=== PATIENT | female | born 1990 | race Caucasian/White ===

== ENCOUNTER 2022-04-02 23:26 | Emergency (ER) | payer SELFPAY ==
[~2022-04-02] VITALS: Ht 167.6 cm; Wt 95.3 kg
--- NOTE | 2022-04-02 23:47 | NUR ---
BIBS. L SIDE CP INTERMITENT SHARP W/ L ARM ABD BILAT LOWER LEG TINGLING. PT STATES C/P HAS BEEN FOR THE PAST FEW DAYS BUT WORSTENED TODAY. ALSO ENDORSES RECENT TRAVEL VIA AIRPLANE AND LOWER EXTREMITY PAIN. PT AWAKE AND ALERT X4 BREATHING EVEN AND UNLABORED. 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
--- NOTE | 2022-04-02 23:54 | NUR ---
20G LAC ESTABLISHED. BLOOD DRAWN AND SENT TO LAB.
[2022-04-03 00:29] LABS: BASOPHILS % (AUTO) 0.3 % (0.0-2.0); EOSINOPHILS % (AUTO) 1.4 % (0.0-6.0); HEMATOCRIT 40 % (33-45); HEMOGLOBIN 12.7 g/dL (11.5-14.8); LYMPHOCYTES # (AUTO) 2.8 K/uL (0.8-4.8); MEAN CORPUSCULAR HGB CONC 32 g/dl (31.0-36.0); MEAN CORPUSCULAR VOLUME 83 fL (82-100); MONOCYTES # (AUTO) 0.8 K/uL (0.1-1.30); MONOCYTES % (AUTO) 7.4 % (2.0-12.0); NEUTROPHILS # (AUTO) 7.3 K/uL (1.8-8.9); NEUTROPHILS % (AUTO) 65.9 % (43.0-81.0); PLATELET COUNT (AUTO) 304 K/uL (150-450); RED BLOOD CELL COUNT(AUTO) 4.76 MIL/uL (4.0-5.2)
[2022-04-03 00:40] LABS: CALCIUM, SERUM 8.7 mg/dL (8.5-10.1); CARBON DIOXIDE 32 mmol/L (21-32); CHLORIDE 104 mmol/L (98-107); CREATININE 0.7 mg/dL (0.6-1.3); GLUCOSE 98 mg/dL (74-106); POTASSIUM 3.5 mmol/L (3.5-5.1); SODIUM SERUM 140 mmol/L (136-145); UREA NITROGEN, BLOOD 10 mg/dL (7-18)
--- NOTE | 2022-04-03 02:08 | NUR ---
Patient discharged to home in stable condition. Written and verbal after care instructions given. Patient verbalizes understanding of instruction.IV removed. Catheter intact and site benign. Pressure and 4x4 applied to site. No bleeding noted.
[2022-04-03 02:09] VITALS: BP 120/78
== END 2022-04-03 02:09 | disposition home or self-care (01) ==
LOC: ER 23:31
DX: R07.89 Other chest pain (principal)
CPT/HCPCS: 36415; 71045-TC; 80048-TC; 84484-TC; 85025-TC; 85378-TC